=== PATIENT | female | born 1960 | race Two or more races ===

== ENCOUNTER 2016-11-10 12:00 | Emergency (ER) | payer OTHER ==
[~2016-11-10] VITALS: Ht 162.6 cm; Wt 59.0 kg
[2016-11-10] MEDS ORDERED: Ondansetron ODT 8mg tab ORAL ONE (12:15)
[2016-11-10] MEDS ORDERED: Famotidine 20 MG/ 2ML VIAL IVP ONE (13:00)
[2016-11-10] MEDS ORDERED: DiphenhydrAMINE 50mg/ml Inj IVP ONE (13:00)
[2016-11-10] MEDS ORDERED: Metoclopramide 10mg/2ml Inj IVP ONE (13:00)
[2016-11-10 14:56] LABS: MEAN CORPUSCULAR HEMOGLOBIN 31.5 PG (27.0-31.0); MEAN CORPUSCULAR HGB CONC 32.8 G/DL (32.0-36.0); MEAN CORPUSCULAR VOLUME 96 FL (80-99); MEAN PLATELET VOLUME 6.1 FL (6.5-10.1); PLATELET COUNT 274 K/UL (150-450); RED BLOOD COUNT 4.79 M/UL (4.20-5.40); RED CELL DISTRIBUTION WIDTH 10.6 % (11.6-14.8); WHITE BLOOD COUNT 10.9 K/UL (4.8-10.8)
[2016-11-10 15:14] LABS: ALBUMIN/GLOBULIN RATIO 1.2 (1.0-2.7); CALCIUM 9.3 mg/dL (8.6-10.2); GLOMERULAR FILTRATION RATE 57.1 mL/min (>60); POTASSIUM 4.2 mEQ/L (3.4-4.9); TOTAL PROTEIN 7.8 g/dL (6.6-8.7)
[2016-11-10 15:35] VITALS: BP 114/75
[2016-11-10] MEDS ORDERED: ZOFRAN ODT4 MG ORAL (15:57)
[2016-11-10] MEDS ORDERED: BENTYL10 MG ORAL (15:57)
[2016-11-10] MEDS ORDERED: PEPCID20 MG ORAL (15:57)
[2016-11-10 16:07] LABS: BAND NEUTROPHILS % (MANUAL) 22 % (0-8); LYMPHOCYTES % (MANUAL) 6 % (20-45); NEUTROPHILS % (MANUAL) 68 % (45-75); TOTAL CELLS COUNTED 100
[2016-11-10 16:08] LABS: BASOPHILS % (MANUAL) 0 % (0-2); EOSINOPHILS % (MANUAL) 0 % (0-3); PLATELET ESTIMATE ADEQUATE; PLATELET MORPHOLOGY NORMAL
[2016-11-10 16:09] LABS: POLYCHROMASIA 1+
[2016-11-10 16:50] VITALS: BP 108/70
[2016-11-11 11:13] LABS: OTHERS PATHOLOGIST COMMENT
--- NOTE | 2016-11-12 06:46 | Emergency Room Report ---
History of Present Illness General Chief Complaint: Abdominal Pain Source: Patient Present Illness HPI 56 YO F with generalized abd discomfort, nausea/vomiting, and diarrhea a few hours after eating "old chicken." No other sick contacts. No fever/chills. No foreign travel. No prior abd/pelvic surgery. Didnt take any OTC meds at home. Denies urinary complaints. Allergies: Coded Allergies: No Known Allergies (Unverified , 11/10/16) Patient History Past Medical History: none Past Surgical History: none Pertinent Family History: none Social History: Denies: alcohol use, drug use, smoking Now: No Immunizations: UTD Reviewed Nursing Documentation: PMH: Agreed Nursing Documentation-PMH Past Medical History: No Stated History Review of Systems All Other Systems: negative except mentioned in HPI Physical Exam Vital Signs Date Time Temp Pulse Resp B/P Pulse Ox O2 Delivery O2 Flow Rate FiO2 11/10/16 11:51 97.5 80 18 122/84 100 Room Air Sp02 EP Interpretation: reviewed, normal General Appearance: normal inspection, well appearing, no apparent distress, alert, GCS 15, non-toxic, other - Middle aged lady resting comfortably in stretcher Head: normocephalic, atraumatic Eyes: bilateral eye EOMI, bilateral eye PERRL ENT: normal ENT inspection, hearing grossly normal, normal voice, dry mucus membranes Neck: normal inspection, full range of motion, supple, no bony tend Respiratory: normal inspection, lungs clear, normal breath sounds, no respiratory distress, no retraction, no wheezing Cardiovascular #1: regular rate, rhythm, no edema Gastrointestinal: normal inspection, normal bowel sounds, non tender, soft, non -distended, no guarding, no hernia, no pulsatile mass, no rebound Genitourinary: no CVA tenderness Musculoskeletal: normal inspection, back normal, normal range of motion, Abraham' s Sign negative Neurologic: normal inspection, alert, oriented x3, responsive, bureau director III-XII nml as tested, motor strength/tone normal, speech normal Psychiatric: normal inspection, judgement/insight normal, mood/affect normal Skin: normal inspection, normal color, no rash Lymphatic: normal inspection Medical Decision Making Diagnostic Impression: Primary Impression: Viral gastroenteritis ER Course 56 YO F with likely viral gastroenteritis, possibly from food poisoning. VSS. Afebrile. Labs: H&H stable. Mild leuks likely reactionary from vomiting. Lipase and bili normal. Patient feels much better after antiemetic, pepcid Patient was hydrated with IVF Tolerating PO Exam continues to be non-focal on serial exam of abdomen Likely viral gastroenteritis Low suspicion for acute bacterial or surgical process at this time Rx Pepcid, Zofran, bentyl Advised BRAT diet, fluids and PMD followup Understands to Return to ER for worsening, focal abd pain, fever/chills or inability to tolerate PO Last Vital Signs Date Time Temp Pulse Resp B/P Pulse Ox O2 Delivery O2 Flow Rate FiO2 11/10/16 16:50 84 16 108/70 97 Room Air 11/10/16 15:35 99.0 Status: improved Disposition: HOME, SELF-CARE Condition: Improved Scripts Dicyclomine Hcl* (BENTYL*) 10 Mg Capsule 10 MG ORAL FOUR TIMES A DAY for 4 Days, #20 CAP Prov: RYANNE DEL VALLE M.D. 11/10/16 Famotidine (PEPCID) 20 Mg Tablet 20 MG ORAL BID for 7 Days, #14 TAB 0 Refills Prov: RYANNE DEL VALLE M.D. 11/10/16 Ondansetron Odt* (ZOFRAN ODT*) 4 Mg Tab.rapdis 4 MG ORAL Q6H Y for Nausea & Vomiting, #30 TAB 0 Refills Prov: RYANNE DEL VALLE M.D. 11/10/16 Patient Instructions: Abdominal Pain, Adult Additional Instructions: - Take zofran as needed for nausea - BRAT diet - bananas/rice/apple sauce/toast - progress diet slowly - Bently as prescribed for diarrhea - Drink plenty of liquids - Take pepcid twice daily for 1 week - Return to ER for worsening abdominal pain to one particular area of your abdomen, fever/chills, inability to keep water down RYANNE DEL VALLE M.D. Nov 12, 2016 06:46
== END 2016-11-10 17:00 | disposition home or self-care (01) ==
LOC: EDBD 12:00 → EMR 13:52
DX: A08.4 Viral intestinal infection, unspecified (principal)
CPT/HCPCS: 36415; 80053; 83690; 85007; 85025; 96360; 96374; 96375; 99284; J1200; J2765; Q0162; S0028